=== PATIENT | male | born 1940 | race Hispanic/Latino ===

== ENCOUNTER 2017-04-21 14:30 | Inpatient (IN) | payer OTHER ==
[~2017-04-21] VITALS: Ht 174 cm; Wt 85.2 kg
[2017-07-18 15:45] VITALS: BP 156/71
[2017-07-18 15:49] LABS: APPEARANCE,URINE Clear (CLEAR); BILIRUBIN,URINE Negative (NEGATIVE); COLOR,URINE Yellow (YELLOW); GLUCOSE, URINE (UA) Negative (NEGATIVE); KETONES,URINE Negative (NEGATIVE); LEUKOCYTE ESTERASE ,URINE Negative (NEGATIVE); NITRATE,URINE Negative (NEGATIVE); OCCULT BLOOD,URINE Negative (NEGATIVE); PH,URINE 5.5 (5.0-8.0); PROTEIN,URINE Negative (NEGATIVE)
[2017-07-18 15:49] LABS: CREATININE 1.3 mg/dL (0.5-1.5)
[2017-07-18] MEDS ORDERED: SIMV40TA59 PO (15:59)
[2017-07-18] MEDS ORDERED: AMLO5TAB2 PO (15:59)
[2017-07-18] MEDS ORDERED: LISI-613 PO (15:59)
[2017-07-18] MEDS ORDERED: BUDE10.2 IH (15:59)
[2017-07-19] VITALS (25 sets, daily range): BP systolic 123–161; BP diastolic 56–90
[2017-07-19] MEDS: CEFAZOLIN SODIUM 1 GM VIAL IVP SCH ×4 (06:00→23:17)
[2017-07-19] MEDS ORDERED: LACTATED RINGERS 1000ML 1,000 ML IV ONE (07:21)
[2017-07-19] MEDS ORDERED: CEFAZOLIN SODIUM 1 GM VIAL ONE (07:28)
[2017-07-19] MEDS ORDERED: EPINEPHRINE 1 MG/ML AMPULE ONE (07:28)
[2017-07-19] MEDS ORDERED: BUPIVACAINE/PF 0.25% 30ML VIAL IJ ONE (07:28)
[2017-07-19] MEDS ORDERED: ROPIVACAINE 0.5% 5MG/ML 30ML IJ ONE ×2 (08:37→12:33)
[2017-07-19] MEDS ORDERED: FENTANYL CITRATE PF 50 MCG/1 ML 2ML VIAL ONE ×2 (08:38→09:35)
[2017-07-19] MEDS ORDERED: MIDAZOLAM HCL 1 MG/ML 2ML VIAL ONE (08:38)
[2017-07-19] MEDS ORDERED: PROPOFOL 10 MG/ML 20ML VIAL IV ONE (08:39)
[2017-07-19] MEDS: TRANEXAMIC ACID 1000MG/10ML IV ONE ×2 (08:50→11:05)
[2017-07-19] MEDS ORDERED: KETOROLAC TROMETHAMINE 15MG/ML IV PRN (10:30)
[2017-07-19] MEDS ORDERED: POTASSIUM CHLORIDE 20 MEQ ERTAB PO PRN (10:30)
[2017-07-19] MEDS ORDERED: POTASSIUM CHLORIDE 10% ELIXIR 20 MEQ/15 ML UDCUP PO PRN (10:30)
[2017-07-19] MEDS ORDERED: OXYCODONE HCL 5 MG TAB PO PRN (10:30)
[2017-07-19] MEDS: ACETAMINOPHEN EXTRA STRENGTH 500 MG TABLET PO SCH ×2 (10:30→20:59)
[2017-07-19] MEDS ORDERED: DiphenhydrAMINE HCL 50 MG/ML VIAL IVP PRN (10:30)
[2017-07-19] MEDS ORDERED: LIDOCAINE HCL-MPF 1% 2ML VIAL IVP PRN (10:30)
[2017-07-19] MEDS ORDERED: TRAMADOL HCL 50 MG TABLET PO PRN (10:30)
[2017-07-19] MEDS ORDERED: CALCIUM CARBONATE 500 MG TABLET PO PRN (10:30)
[2017-07-19] MEDS ORDERED: FERROUS FUMARATE 324 MG TABLET PO PRN (10:30)
[2017-07-19] MEDS ORDERED: TEMAZEPAM 15 MG CAPSULE PO PRN (10:30)
[2017-07-19] MEDS ORDERED: ONDANSETRON HCL 4 MG/2 ML VIAL IVP PRN (10:30)
[2017-07-19] MEDS ORDERED: POTASSIUM CHLORIDE 20MEQ/100ML 100 ML IV PRN (10:30)
[2017-07-19] MEDS ORDERED: ONDANSETRON HCL MDV 20ML 2 MG/ML VIAL ONE (10:53)
[2017-07-19] MEDS ORDERED: DEXAMETHASONE SOD PHOSPHATE 10MG/ML 1ML VIAL ONE (10:53)
[2017-07-19] MEDS ORDERED: MEPERIDINE-PF 25 MG/ML SYG ONE ×2 (11:05→11:31)
[2017-07-19] MEDS ORDERED: MORPHINE SULFATE 4 MG/1ML SYG ONE (11:20)
[2017-07-19] MEDS: SODIUM CHLORIDE 0.9% 1000ML 1,000 ML IV SCH ×2 (15:13→20:59)
[2017-07-19] MEDS ORDERED: CEFAZOLIN 2GM / 50 ML 50 ML IV SCH (15:30)
[2017-07-19] MEDS: IPRATROPIUM/ALBUTEROL SULFATE 3 ML SOLUTION IH SCH ×2 (19:07→23:10)
[2017-07-19] MEDS: BUDESONIDE 0.5 MG/2 ML INH IH SCH (19:15)
[2017-07-19] MEDS: ATORVASTATIN CALCIUM 10 MG TABLET PO SCH (20:59)
[2017-07-19] MEDS: PREGABALIN 25 MG CAP PO SCH (20:59)
[2017-07-19] MEDS: CELECOXIB 200 MG CAP PO SCH (20:59)
[2017-07-19] MEDS: ASPIRIN 325 MG TABLET PO SCH (20:59)
[2017-07-19] MEDS: FAMOTIDINE 20MG TAB 20 MG TAB PO SCH (21:00)
[2017-07-20] VITALS (7 sets, daily range): BP systolic 118–147; BP diastolic 62–77
[2017-07-20] MEDS: ACETAMINOPHEN EXTRA STRENGTH 500 MG TABLET PO SCH ×3 (00:29→18:35)
[2017-07-20] MEDS: SODIUM CHLORIDE 0.9% 1000ML 1,000 ML IV SCH (00:29)
[2017-07-20 05:12] LABS: HEMATOCRIT 36.2 % (42-54); MEAN CORPUSCULAR HEMOGLOBIN 29.8 pg (27.0-33.0); MEAN CORPUSCULAR HGB CONC 35.6 g/dL (32.0-36.0); MEAN CORPUSCULAR VOLUME 83.8 fL (79-99); PLATELET COUNT (AUTO) 144 K/uL (130-400); RED BLOOD CELL COUNT(AUTO) 4.32 MIL/uL (4.50-6.20); RED CELL DISTRIBUTION WIDTH 13.8 % (11.0-15.5); WHITE BLOOD COUNT (AUTO) 10.2 K/uL (4.8-10.8)
[2017-07-20 05:25] LABS: CREATININE 1.4 mg/dL (0.5-1.5); POTASSIUM 4.2 mmol/L (3.5-5.1)
[2017-07-20] MEDS: IPRATROPIUM/ALBUTEROL SULFATE 3 ML SOLUTION IH SCH ×4 (07:10→23:46)
[2017-07-20] MEDS: BUDESONIDE 0.5 MG/2 ML INH IH SCH ×2 (07:30→19:04)
[2017-07-20] MEDS: CELECOXIB 200 MG CAP PO SCH ×2 (08:18→19:53)
[2017-07-20] MEDS: ASPIRIN 325 MG TABLET PO SCH ×2 (08:18→19:53)
[2017-07-20] MEDS: POLYETHYLENE GLYCOL 3350 17 GM POWD.PACK PO SCH (08:18)
[2017-07-20] MEDS: LISINOPRIL 20 MG TABLET PO SCH (08:19)
[2017-07-20] MEDS: PREGABALIN 25 MG CAP PO SCH ×2 (08:21→19:53)
[2017-07-20] MEDS: TAMSULOSIN HCL 0.4 MG CAP.ER.24H PO SCH (08:21)
[2017-07-20] MEDS: FAMOTIDINE 20MG TAB 20 MG TAB PO SCH (08:21)
[2017-07-20] MEDS: AMLODIPINE BESYLATE 5 MG TAB PO SCH (08:21)
[2017-07-20] MEDS: OXYCODONE HCL 5 MG TAB PO PRN ×3 (08:24→19:53)
[2017-07-20] MEDS: ATORVASTATIN CALCIUM 10 MG TABLET PO SCH (19:53)
[2017-07-21 00:03] VITALS: BP 130/75
[2017-07-21] MEDS: ACETAMINOPHEN EXTRA STRENGTH 500 MG TABLET PO SCH ×2 (03:03→10:21)
[2017-07-21 04:03] VITALS: BP 136/71
[2017-07-21] MEDS: IPRATROPIUM/ALBUTEROL SULFATE 3 ML SOLUTION IH SCH ×3 (05:56→18:00)
[2017-07-21] MEDS: BUDESONIDE 0.5 MG/2 ML INH IH SCH (05:56)
[2017-07-21 07:41] VITALS: BP 135/70
[2017-07-21] MEDS: ASPIRIN 325 MG TABLET PO SCH (08:49)
[2017-07-21] MEDS: POLYETHYLENE GLYCOL 3350 17 GM POWD.PACK PO SCH (08:49)
[2017-07-21] MEDS: TAMSULOSIN HCL 0.4 MG CAP.ER.24H PO SCH (08:49)
[2017-07-21] MEDS: LISINOPRIL 20 MG TABLET PO SCH (08:49)
[2017-07-21] MEDS: PREGABALIN 25 MG CAP PO SCH (08:49)
[2017-07-21] MEDS: FAMOTIDINE 20MG TAB 20 MG TAB PO SCH (08:49)
[2017-07-21] MEDS: CELECOXIB 200 MG CAP PO SCH (08:49)
[2017-07-21] MEDS: AMLODIPINE BESYLATE 5 MG TAB PO SCH (08:49)
[2017-07-21 11:18] VITALS: BP 122/66
[2017-07-21] MEDS ORDERED: ASPI-1012 PO (15:39)
[2017-07-21] MEDS ORDERED: HYDR-309 PO (15:39)
[2017-07-21 16:13] VITALS: BP 113/61
[2017-07-22] MEDS ORDERED: BISACODYL 10 MG SUPP.RECT RC PRN (10:30)
== END 2017-07-21 18:30 | disposition home health service (06) | DRG 470 ==
LOC: EDSTATUS 07-18 15:00 → DAHIP 07-19 06:10 → 4AH 07-19 12:15
PROVIDERS: ADMIT Orthopaedic Surgery; ATTEND Orthopaedic Surgery
PROC: 0SRD0J9 Replacement of Left Knee Joint with Synthetic Substitute, Cemented, Open Approach (ICD-10-PCS; principal; 2017-07-19 08:20)
DX: M17.12 Unilateral primary osteoarthritis, left knee (principal); I10 Essential (primary) hypertension; Z82.49 Family history of ischemic heart disease and other diseases of the circulatory system; Z80.9 Family history of malignant neoplasm, unspecified
CPT/HCPCS: 36415; 80048; 81003; 85027; 88305; 88311; 94640; 94664; A4218; J0171; J0690; J1100; J2175; J2250; J2270; J2704; J2795; J3010; J3490; J7030; J7120